=== PATIENT | female | born 1980 | race African-American/Black ===

== ENCOUNTER 2021-03-09 23:24 | Emergency (ER) | payer MEDICAID ==
[~2021-03-09] VITALS: Ht 165.1 cm; Wt 152.4 kg
[2021-03-09 23:47] VITALS: BP 147/100
== END 2021-03-10 03:59 | disposition left against medical advice (07) ==
LOC: ER 23:24
DX: L02.412 Cutaneous abscess of left axilla (principal); Z53.21 Procedure and treatment not carried out due to patient leaving prior to being seen by health care provider